=== PATIENT | female | born 1950 | race Caucasian/White ===

== ENCOUNTER 2019-03-25 15:00 | Outpatient (CLI) | payer MEDICARE, OTHER | END 2019-03-25 15:30 | LOC: NEPHRO 15:00 | PROVIDERS: ATTEND Internal Medicine Nephrology | DX: I12.9 Hypertensive chronic kidney disease with stage 1 through stage 4 chronic kidney disease, or unspecified chronic kidney disease (principal); D63.1 Anemia in chronic kidney disease; N18.3 Chronic kidney disease, stage 3 (moderate) | CPT/HCPCS: 99214; G0463 ==

== ENCOUNTER 2019-04-03 12:59 | Emergency (ER) | payer OTHER ==
[2019-04-03 13:39] LABS: eGFR (Non-African) 35
[2019-04-03 13:45] LABS: BASOPHILS % 0.2 % (0.0-1.5)
[2019-04-03 13:46] LABS: SEGMENTED NEUTROPHILS % 64 % (39-79)
[2019-04-03 13:47] LABS: HYPOCHROMASIA 1+ (NEGATIVE)
--- NOTE | 2019-04-03 13:49 | Diagnostic Imaging Report ---
PATIENT MR#: [id number] PATIENT PATIENT NAME: JANE HOWELL DATE OF : 1950 REFERRING PHYSICIAN: SURAJ GONZALEZ EXAM DATE: 04/03/2019 ACCESSION NUMBER: [id number] EXAM DESCRIPTION: CHEST 2VIEW Chest Two Views History: CXR, COUGH. PT STATES COUGHING UP BLOOD SINCE LAST NIGHT, HX OF COPD, SMOKER (Hx) / Note time : 04/03/2019 1:35:29 PM User : Ambar Silverman CXR, COUGH. PT STATES COUGHING UP BLOOD SINCE LAST NIGHT, HX OF COPD, SMOKER (DICOM Hx) (DICOM Hx) Findings:Heart is enlarged. Lungs are clear. No pneumothorax or pleural effusion. Impression: No acute process Read by: Dr. Jeff Ornelas Transcribed by: Transcribed Date: Electronically signed by: Dr. Jeff Ornelas Date signed: 04/03/2019 1:48:48 PM
--- NOTE | 2019-04-03 15:39 | ED Physician Documentation ---
General Adult - HISTORIAN Historian: patient - HPI Stated Complaint: coughing up blood Chief Complaint: General Adult Further Comments: yes (68 year old female patient presents with large amount of hemoptysis which started lasted night around [id number] after she was carrying firewood into the house. Patient denies any SOB or CP. Report similar episode that lasted 1 hour about 3 weeks ago. Denies weight loss, edema in ankle; does report "night sweats, but I have always had those". PCP: Neelima PUENTE) - ROS CONST: sweating. denies: fever, recent illness, weakness, weight loss, chills EYES/ENT: none CVS/RESP: none GI/: none MS/SKIN/LYMPH: none - PAST HX Past History: hypertension Surgeries/Procedures: other ("heart surgery at [facility]") Allergies/Adverse Reactions: Allergies Allergy/AdvReac Type Severity Reaction Status Date / Time heparin Allergy Verified 04/03/19 14:28 Home Medications: Ambulatory Orders Medication Instructions Recorded Aspirin [Adult Aspirin Regimen] 81 mg PO DAILY 04/03/19 Nifedipine [Nifedipine ER] 30 mg PO DAILY 04/03/19 - SOCIAL HX Smoking History: cigarettes - FAMILY HX Family History: No - VITAL SIGNS Vital Signs: Vital Signs Temp Pulse Resp BP Pulse Ox 98.3 F 84 22 139/79 98 04/03/19 12:59 04/03/19 15:30 04/03/19 12:59 04/03/19 12:59 04/03/19 15:30 - REVIEWED ASSESSMENTS Nursing Assessment Reviewed: Yes Vitals Reviewed: Yes Progress - Progress Progress: 1430 Call to [facility] - patient accepted by Dr Morejon, OBS admit for pulmonary consult. 1530 Patient refuses ambulance transfer, risk and benefits explained at length. Patient verbalized understanding and refusal of service signed. At discharge patient changed her onset of symptoms to "last night between 2099- 2200". - EKG/XRAY/CT EKG: rhythm (Rate 82, SR non specific changes; no STEMI) ED Results Lab/Radiology - Lab Results Lab Results: Lab Results 04/03/19 04/03/19 04/03/19 13:59 13:20 13:20 WBC 5.40 K/ul K/ul (4.00-12.00) RBC 3.69 M/ul L M/ul (3.90-5.20) Hgb 11.1 g/dL L g/dL (11.5-16.0) Hct 33.1 % L % (34.5-46.5) MCV 90.0 fl fl (80.0-100.0) MCH 30.1 pg pg (28.0-34.0) MCHC 33.5 g/dL g/dL (30.0-36.0) RDW 13.2 % % (11.3-14.3) Plt Count 180 K/mm3 K/mm3 (130-400) Neut % (Auto) 55.8 % % (39.0-79.0) Lymph % (Auto) 28.9 % % (16.0-50.0) Spalding % (Auto) 13.7 % H % (0.0-11.0) Eos % (Auto) 1.4 % % (0.0-6.8) Baso % (Auto) 0.2 % % (0.0-1.5) Neut # (Auto) 3.0 # k/uL # k/uL (1.4-7.7) Lymph # (Auto) 1.6 # k/uL # k/uL (0.6-4.0) Spalding # (Auto) 0.8 # k/uL # k/uL (0.0-0.9) Eos # (Auto) 0.1 # k/uL # k/uL (0.0-0.6) Baso # (Auto) 0.0 # k/uL # k/uL (0.0-0.5) Seg Neutrophils % 64 % % (39-79) Lymphocytes % 27 % % (16-50) Monocytes % 9 % % (0-11) Plt Morphology Comment Normal (NORMAL) Hypochromasia 1+ H (NEGATIVE) RBC Morph Comment Abnormal H (NORMAL) PT 10.8 Seconds Seconds (8.8-11.9) INR 1.04 (0.80-1.10) APTT 24.8 Seconds Seconds (24.7-37.8) Sodium 144 mmol/L mmol/L (137-145) Potassium 3.9 mmol/L mmol/L (3.5-5.1) Chloride 107 mmol/L mmol/L (98-107) Carbon Dioxide 27 mmol/L mmol/L (22-30) Anion Gap 13.9 BUN 18 mg/dL H mg/dL (7-17) Creatinine 1.57 mg/dL H mg/dL (0.52-1.04) Est GFR ( Amer) 42 L (60 - ) Est GFR (Non-Af Amer) 35 L (60 - ) Glucose 142 mg/dL H mg/dL (74-106) Calcium 9.3 mg/dL mg/dL (8.4-10.2) Total Bilirubin 0.5 mg/dL mg/dL (0.2-1.3) AST 34 U/L U/L (15-46) ALT 11 U/L U/L (0-35) Alkaline Phosphatase 78 U/L U/L (38-126) Troponin I Total Protein 8.5 g/dL H g/dL (6.3-8.2) Albumin 4.6 g/dL g/dL (3.5-5.0) 04/03/19 13:20 WBC RBC Hgb Hct MCV MCH MCHC RDW Plt Count Neut % (Auto) Lymph % (Auto) Spalding % (Auto) Eos % (Auto) Baso % (Auto) Neut # (Auto) Lymph # (Auto) Spalding # (Auto) Eos # (Auto) Baso # (Auto) Seg Neutrophils % Lymphocytes % Monocytes % Plt Morphology Comment Hypochromasia RBC Morph Comment PT INR APTT Sodium Potassium Chloride Carbon Dioxide Anion Gap BUN Creatinine Est GFR ( Amer) Est GFR (Non-Af Amer) Glucose Calcium Total Bilirubin AST ALT Alkaline Phosphatase Troponin I 0.013 ng/mL ng/mL (0.012-0.034) Total Protein Albumin - Radiology Radiology Impressions: Impression: No acute process - Orders Orders: ED Orders Category Date Time Status Continuous EKG monitoring Q30M Care 04/03/19 13:20 Active Continuous Pulse Oximetry Q30M Care 04/03/19 13:[address] IV Lock 1T Care 04/03/19 13:20 Active CHEST 2VIEW [RAD] Stat Exams 04/03/19 13:20 Completed CBC/PLATELET/DIFF Stat Lab 04/03/19 13:20 Completed CMP Stat Lab 04/03/19 13:20 Completed PT-INR Stat Lab 04/03/19 13:59 Completed PTT Stat Lab 04/03/19 13:59 Completed TROPONIN I Stat Lab 04/03/19 13:20 Completed UA W MICRO [UA W/MICRO IF INDICATED] Stat Lab 04/03/19 14:07 Ordered EKG WITH COMPARISON Stat Ther 04/03/19 13:20 Ordered General Adult Physical Exam - PHYSICAL EXAM GENERAL APPEARANCE: mild distress EENT: eye inspection normal, ENT inspection normal, pharynx normal, no signs of dehydration, JV, no nystagmus, TM's nml, other (terrell blood noted in mouth; cannot visualize source) RESPIRATORY: no resp distress, chest non-tender, breath sounds normal, other (terrell hemoptysis) ABDOMEN: soft, no organomegaly, normal bowel sounds, no abdominal bruit, no distension, other (protuberant) BACK: normal inspection, no CVA tenderness SKIN: normal color, warm/dry, NR, INT, PAL, DR EXTREMITIES: non-tender, normal range of motion, no evidence of injury, no edema, J, [employer] NEURO: oriented X3, CN's nml as tested, motor nml, sensation nml, mood/affect nml Discharge Clincal Impression: Hemoptysis Referrals: Primary Doctor,No [Primary Care Provider] - 2 Days Condition: Stable Disposition: 01 HOME, SELF-CARE Decision to Admit: NO Decision Time: 15:44
[2019-04-03 17:30] VITALS: BP 149/46
[2019-04-04 06:57] LABS: APPEARANCE,URINE CLEAR (CLEAR); COLOR,URINE YELLOW (YELLOW); OCCULT BLOOD,URINE 1+ (NEGATIVE); PH URINE 6.5 (5.0 - 8.0); UROBILINOGEN URINE 0.2 Eu (0.2-1.0)
== END 2019-04-03 15:40 | disposition short-term general hospital (02) ==
LOC: ED 12:59
DX: R04.2 Hemoptysis (principal)
CPT/HCPCS: 71046; 80053; 81002; 84484; 85025; 85610; 85730; 93005; 99282; 99283; S1016